=== PATIENT | female | born 1955 | race Asian ===

== ENCOUNTER 2021-12-03 08:09 | Emergency (ER) | payer BC ==
[~2021-12-03] VITALS: Ht 152.4 cm; Wt 45.5 kg
[2021-12-03] MEDS ORDERED: LISI10TA24 PO (08:23)
[2021-12-03] MEDS ORDERED: METF-1211 PO (08:23)
[2021-12-03] MEDS ORDERED: SEMA0.25 SQ (08:24)
[2021-12-03 08:36] LABS: GLUCOSE,POINT OF CARE 118 MG/DL (70-110)
[2021-12-03 09:08] LABS: BASOPHILS % (AUTO) 0.7 % (0.0-2.0); EOSINOPHILS % (AUTO) 3.5 % (1.0-6.0); HEMATOCRIT 37.5 % (36-46); HEMOGLOBIN 11.5 g/dL (12.0-16.0); LYMPHOCYTES # (AUTO) 1.7 K/uL (1.0-4.8); LYMPHOCYTES % (AUTO) 33.1 % (22.0-44.0); MEAN CORPUSCULAR HEMOGLOBIN 21.1 pg (26.0-34.0); MEAN CORPUSCULAR HGB CONC 30.7 G/dL (31.0-37.0); MEAN CORPUSCULAR VOLUME 69 fL (80-100); MONOCYTES # (AUTO) 0.4 K/uL (0.1-1.0); NEUTROPHILS # (AUTO) 2.9 K/uL (1.8-7.7); NEUTROPHILS % (AUTO) 55.7 % (40.0-70.0); PLATELET COUNT (AUTO) 349 K/uL (150-450); RED BLOOD CELL COUNT(AUTO) 5.45 MIL/uL (4.00-5.20); RED CELL DISTRIBUTION WIDTH 17.5 % (11.5-14.5)
[2021-12-03] MEDS ORDERED: ACETAMINOPHEN 325 MG TABLET PO ONE (09:15)
[2021-12-03] MEDS ORDERED: LIDOCAINE 5% TRANSDERMAL PATCH TD ONE (09:15)
[2021-12-03 09:18] LABS: ANION GAP 9 mmol/L (8-16); CALCIUM, TOTAL 9.2 mg/dL (8.8-10.5); CARBON DIOXIDE 32 mmol/L (22-29); CHLORIDE 102 mmol/L (98-107); CREATININE 0.73 mg/dL (0.60-1.30); GLUCOSE,RANDOM 124 mg/dL (70-110); POTASSIUM 3.4 mmol/L (3.5-5.1); SODIUM SERUM 143 mmol/L (136-145); UREA NITROGEN, BLOOD 14 mg/dL (7-18)
[2021-12-03 09:21] LABS: GLOMERULAR FILTR. RATE CALC > 60 mL/min (>60)
[2021-12-03 09:27] LABS: ALANINE AMINOTRANSFERASE 62 U/L (12-78); ALBUMIN 4.2 g/dL (3.4-5.0); ALKALINE PHOSPHATASE 84 U/L (46-116); ASPARTATE AMINOTRANSFERASE 42 U/L (15-37); BILIRUBIN,TOTAL 0.2 mg/dL (0.1-1.0); CREATINE KINASE, TOTAL ONLY 102 U/L (26-192); TOTAL PROTEIN, SERUM 8.7 g/dL (6.4-8.2)
[2021-12-03 09:29] LABS: B-TYPE NATRIURETIC PEPTIDE 16 pg/mL (0-100)
[2021-12-03] MEDS ORDERED: AZITHROMYCIN 500 MG TABLET PO ONE (09:45)
[2021-12-03 09:51] LABS: COVID AG,FIA SOURCE NASOPHARYNGEAL
[2021-12-03] MEDS ORDERED: AZIT-84 PO (09:55)
[2021-12-03 10:32] LABS: INFLUENZA TYPE A NEGATIVE FOR TYPE A (NEGATIVE); INFLUENZA TYPE B NEGATIVE FOR TYPE B (NEGATIVE)
[2021-12-03 11:20] VITALS: BP 140/77
== END 2021-12-03 11:39 | disposition home or self-care (01) ==
LOC: EMS 08:24
DX: J18.9 Pneumonia, unspecified organism (principal); Z20.822 Contact with and (suspected) exposure to COVID-19; E11.9 Type 2 diabetes mellitus without complications; R07.89 Other chest pain; Z86.39 Personal history of other endocrine, nutritional and metabolic disease
CPT/HCPCS: 99285; 71045; 87426; 80053; 82550; 82962; 83690; 83880; 84484; 85025; 87804; 36415; 93005; Q9967